=== PATIENT | female | born 1955 | race Caucasian/White ===

== ENCOUNTER 2023-03-23 11:38 | Day surgery (SDC) | payer OTHER ==
[~2023-03-23] VITALS: Ht 149.9 cm; Wt 74.1 kg
[2023-03-23] MEDS ORDERED: AMLO10 PO (12:57)
[2023-03-23] MEDS ORDERED: OMEP20ER PO (12:57)
[2023-03-23] MEDS ORDERED: LOSA50 PO (12:57)
[2023-03-23] MEDS ORDERED: ALOGLIPTIN25 M1 (12:57)
--- NOTE | 2023-03-23 13:24 | NUR ---
03/23/23 1324 Patsy Perkins TETRACAINE TO THE R EYE AT 1258, PLEDGET PLACED AT 1259 BY [email or web address]
[2023-03-23 14:17] VITALS: BP 126/73
--- NOTE | 2023-03-23 14:32 | NUR ---
03/23/23 1432 Jonathon Dunne IV REMOVED INTACT. SITE WNL.
== END 2023-03-23 14:30 | disposition home or self-care (01) ==
LOC: ORSCSDS 11:38
PROVIDERS: Ophthalmology
PROC: 08RJ3JZ Replacement of Right Lens with Synthetic Substitute, Percutaneous Approach (ICD-10-PCS; principal; 2023-03-23 13:30)
DX: E11.36 Type 2 diabetes mellitus with diabetic cataract (principal); H25.11 Age-related nuclear cataract, right eye; J44.9 Chronic obstructive pulmonary disease, unspecified; I10 Essential (primary) hypertension; I25.10 Atherosclerotic heart disease of native coronary artery without angina pectoris; E66.9 Obesity, unspecified; Z68.33 Body mass index [BMI] 33.0-33.9, adult; Z79.84 Long term (current) use of oral hypoglycemic drugs; Z79.899 Other long term (current) drug therapy
CPT/HCPCS: 82947; J2250; J3010; J3301; J7040; V2632